=== PATIENT | female | born 1980 | race Caucasian/White ===

== ENCOUNTER 2016-12-06 08:09 | Emergency (ER) | payer OTHER ==
[~2016-12-06 08:09] MED LIST: ADVIL200 M2; CARAFATE1 G PO; CARAFATE1 GM PO; FLEXERIL; HYDROCODON-ACE1 EAC9 PO; NO MEDICATIONS; NORFLEX100 M1 PO; PANTOPRAZOLE SO40 MG PO; PROTONIX PO; VOLTAREN75 MG PO; ZOFRAN ODT4 MG/UDTAB PO
[2016-12-06 08:57] LABS: URINE SOURCE CLEAN CATCH
[2016-12-06 08:59] LABS: URINE APPEARANCE CLEAR; URINE BILIRUBIN NEG (NEG); URINE COLOR YELLOW; URINE GLUCOSE NEG (NORM); URINE KETONE NEG (NEG); URINE LEUKOCYTE ESTERASE NEG (NEG); URINE NITRATE NEG (NEG); URINE PH 7.5 (5-8); URINE PROTEIN NEG (NEG); URINE UROBILINOGEN 0.2 MG/DL (NORM)
[2016-12-06 09:07] LABS: MICRO INDICATED? NO; URINE BLOOD NEG (NEG)
== END 2016-12-06 09:25 | disposition home or self-care (01) ==
LOC: SED 08:09
PROVIDERS: Emergency Medicine
DX: K29.00 Acute gastritis without bleeding (principal); F17.200 Nicotine dependence, unspecified, uncomplicated; Z88.6 Allergy status to analgesic agent
CPT/HCPCS: 81003; 99282

== ENCOUNTER 2017-01-03 08:27 | Emergency (ER) | payer OTHER ==
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
--- NOTE | ~2017-01-03 | CR93 ---
[facility]. [facility] A Service of [facility] RADIOLOGY TEXT RESULTS PATIENT: SLOANE SELLERS LOCATION: SED : 79 UNIT #: [id number] AGE: [address]: Angelo Ruvalcaba MD SEX: F ORDER DR: [id number] [place] [id number] E MR#: [id number] Acc #: [id number] NAME: SLOANE SELLERS : 1980 SEX: F STUDY DATE/TIME: 01/03/2017 9:21 UNIT: SED ROOM: STUDY DESCRIPTION: CR Elbow Min 3 Views Lt Attending Physician: Angelo Ruvalcaba M.D. Ordering Physician: Angelo Ruvalcaba M.D. Primary Care Physician: Pako Petty M.D. MEDICAL IMAGING REPORT This report is preliminary unless electronic signature is present. EXAM Left elbow 3 views 01/03/2017 09:21 HISTORY History sheet states fell at work and hit head and elbow about 07:00 a.m. 01/03/2017. Loss of consciousness, headache. COMPARISON None. FINDINGS There is no fracture, dislocation, or effusion. No soft tissue abnormalities seen. IMPRESSION Negative left elbow. Dictated by... Harper Novak M.D. THIS IS AN ELECTRONICALLY VERIFIED REPORT Harper Novak M.D. at 01/03/2017 2:02 PM DANO/tequila TD: 01/03/2017 11:55 JOB #: [id number] MEDICAL IMAGING REPORT Page 1 of 1
== END 2017-01-03 10:18 | disposition home or self-care (01) ==
LOC: SED 08:27
DX: S09.90XA Unspecified injury of head, initial encounter (principal); S50.02XA Contusion of left elbow, initial encounter; F17.210 Nicotine dependence, cigarettes, uncomplicated; Z88.6 Allergy status to analgesic agent; W20.8XXA Other cause of strike by thrown, projected or falling object, initial encounter; Y92.69 Other specified industrial and construction area as the place of occurrence of the external cause
CPT/HCPCS: 70450; 73080; 99284

== ENCOUNTER 2017-03-11 04:23 | Emergency (ER) | payer OTHER ==
[2017-03-11 05:15] LABS: AMPHETAMINE NEG (NEG); BARBITURATES NEG (NEG); BENZODIAZEPINES NEG (NEG); COCAINE POS (NEG); MARIJUANA NEG (NEG); OPIATES NEG (NEG); TRICYCLIC ANTIDEPRESSANTS NEG (NEG); U METHADONE NEG (NEG)
== END 2017-03-11 05:38 | disposition home or self-care (01) ==
LOC: SED 04:23
PROVIDERS: Emergency Medicine
DX: T40.5X1A Poisoning by cocaine, accidental (unintentional), initial encounter (principal); F17.200 Nicotine dependence, unspecified, uncomplicated; Z90.49 Acquired absence of other specified parts of digestive tract; Z90.710 Acquired absence of both cervix and uterus; Z88.8 Allergy status to other drugs, medicaments and biological substances; Y92.9 Unspecified place or not applicable
CPT/HCPCS: 80307; 99283

== ENCOUNTER 2017-03-12 16:13 | Emergency (ER) | payer OTHER | END 2017-03-12 17:13 | disposition home or self-care (01) | LOC: SED 16:13 | DX: F41.1 Generalized anxiety disorder (principal); F17.210 Nicotine dependence, cigarettes, uncomplicated; Z88.6 Allergy status to analgesic agent | CPT/HCPCS: 99283 ==

== ENCOUNTER 2017-05-04 21:52 | Emergency (ER) | payer OTHER ==
[~2017-05-04] VITALS: Ht 162.6 cm; Wt 59.0 kg
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
[2017-05-04 22:42] LABS: BASOPHIL# 0.1 X10e3 (0-0.3); BASOPHIL% 0.5 % (0-2.5); DIFF IND NO; EOSINOPHIL% 0.3 % (0.0-7.0); HEMATOCRIT 39.3 % (35.0-45.0); HEMOGLOBIN 13.2 gm/dL (12.0-16.0); LYMPHOCYTE# 1.9 X10e3 (1.0-3.5); LYMPHOCYTE% 18.3 % (17.0-45.0); MEAN CELL VOLUME 89.5 FL (83-96); MEAN CORPUSCULAR HEMOGLOBIN 30.1 PG (28-34); MEAN CORPUSCULAR HGB CONC 33.7 g/dL (30-36); MEAN PLATELET VOLUME 7.2 FL (6.5-11.5); MONOCYTE% 9.4 % (3.0-12.0); NEUTROPHIL# 7.6 X10e3 (1.5-7.1); NEUTROPHIL% 71.5 % (40-75); PLATELET COUNT 339 X10e3 (140-420); RED BLOOD COUNT 4.39 X10e (3.90-5.30); RED CELL DISTRIBUTION WIDTH 13.3 % (11.0-15.5); WHITE BLOOD COUNT 10.6 X10e3 (4.0-10.5)
[2017-05-04 22:47] LABS: URINE SOURCE CLEAN CATCH
[2017-05-04 22:50] LABS: URINE APPEARANCE CLEAR; URINE BILIRUBIN NEG (NEG); URINE BLOOD NEG (NEG); URINE COLOR YELLOW; URINE GLUCOSE NEG (NORM); URINE KETONE NEG (NEG); URINE LEUKOCYTE ESTERASE NEG (NEG); URINE NITRATE NEG (NEG); URINE PROTEIN TRACE (NEG); URINE UROBILINOGEN 0.2 MG/DL (NORM)
[2017-05-04 22:55] LABS: MICRO INDICATED? YES
[2017-05-04 22:56] LABS: CULTURE INDICATED? NO; URINE BACTERIA NEG (NEG); URINE MUCUS PRESENT; URINE RBC 0-2 /[HPF] (0-2); URINE SQUAMOUS EPITHELIAL CELL MODERATE /[HPF]
[2017-05-04 23:01] LABS: ALBUMIN SERUM 4.8 g/dL (3.5-5.0); ALKALINE PHOSPHATASE 45 U/L (32-92); ALT (SGPT) 13 U/L (10-40); AST (SGOT) 16 U/L (10-42); BILIRUBIN,TOTAL 0.4 mg/dL (0.2-2.0); BLOOD UREA NITROGEN 10 mg/dL (9-23); BUN/CREATININE RATIO 14.28; CALCIUM SERUM 8.8 mg/dL (8.4-10.2); CARBON DIOXIDE 23 mmol/L (22-31); CHLORIDE 107 mmol/L (100-111); CREATININE SERUM 0.7 mg/dL (0.6-1.4); GLOM FILT RATE Estimated 109.9 mL/min (>60); GLUCOSE FASTING 102 mg/dL (70-110); LIPASE 27 U/L (22-51); POTASSIUM 3.7 mmol/L (3.5-5.1); PROTEIN TOTAL SERUM 7.2 g/dL (6.0-8.3); SODIUM 138 mmol/L (135-145)
[2017-05-04 23:04] LABS: BILIRUBIN, DIRECT <0.1 mg/dL (0.0-0.2); BILIRUBIN,INDIRECT 0.3 mg/dL (0.0-0.9)
== END 2017-05-05 00:41 | disposition home or self-care (01) ==
LOC: SED 21:52
PROVIDERS: Emergency Medicine
DX: S40.012A Contusion of left shoulder, initial encounter (principal); S10.93XA Contusion of unspecified part of neck, initial encounter; S00.03XA Contusion of scalp, initial encounter; S00.83XA Contusion of other part of head, initial encounter; S20.222A Contusion of left back wall of thorax, initial encounter; F17.200 Nicotine dependence, unspecified, uncomplicated; Y04.0XXA Assault by unarmed brawl or fight, initial encounter; Y92.009 Unspecified place in unspecified non-institutional (private) residence as the place of occurrence of the external cause
CPT/HCPCS: 70450; 70486; 71100; 72072; 72100; 72125; 73030; 73060; 80048; 80076; 81003; 83690; 85025; 99284